=== PATIENT | female | born 1960 | race Asian ===

== ENCOUNTER → 2016-09-27 | Outpatient (CLI) | payer BC ==
--- NOTE | 2016-09-27 14:22 | RADRPT ---
PROCEDURE: XR left knee. CLINICAL INDICATION: Knee pain TECHNIQUE: AP weightbearing, lateral weightbearing and sunrise views are available for review. COMPARISON: None available FINDINGS: The osseous structures are normal in mineralization, architecture and alignment. No fractures are i dentified. No osseous lesions are identified. The joints are unremarkable. The soft tissues are u nremarkable. IMPRESSION: Unremarkable examination RPTAT: HGDB .Timoteo Vang MD, MD Date Time Electronically viewed and signed by .Timoteo Vang MD, on 09/27/2016 14:21 .B/
--- NOTE | 2016-09-29 03:38 | HKNOTE ---
DATE OF SERVICE: 09/27/2016 REFERRING PHYSICIAN: Dr. Gualberto Alvarez [id number] [facility], [address] [place], [place] [address] MAIN COMPLAINT: Pain in the left knee. HISTORY OF MAIN COMPLAINT: The patient is a 55-year-old female who complains of pain in her left kn ee which has been present for about 4 weeks. There is no specific injury to the knee. She states " the pain just crept up on me." The knee felt tight so that she could not flex it all the way. She thinks there may also have been swelling of the knee. The patient was recently done yoga classes to try and strengthen her legs. She thought that might help. PRESENT COMPLAINTS: The pain in the left knee is localized to the medial side of the knee. The lef t knee does not swell. Occasionally, the knee feels unstable. A week ago, she could not flex her k nee beyond 90 degrees, and then suddenly she was able to do so again. Pain varies between being uncomfortable, moderate pain, and sometimes "severe pain." The pain is ag gravated by walking, weightbearing, and stair climbing. She does get rest pain and night pain. She takes Advil occasionally. She gets temporary relief. She has also tried taking hyaluronic acid an d turmeric. She does have a history of problems with her lower back [osteoporosis]. She takes Fosa max weekly. On a level surface, she can walk perhaps a quarter mile without stopping. She does not use a walking aid, but she gets pain in the left knee with every step that she takes. She does "limp a little." She does not have a shoe lift. She can clip her toenails and tie her michael elaces. SPORTING ACTIVITIES: Running on the treadmill. PAST ORTHOPEDIC HISTORY PREVIOUS ORTHOPEDIC OPERATIONS: None. PRIOR CORTISONE INTAKE: The patient has had cortisone injections "into the back of my neck and into my left shoulder." ALCOHOL INTAKE: Once a week. OTHER JOINT PROBLEMS: None. BLOOD TESTS FOR ARTHRITIS: None. PRIOR INJURIES TO HIPS OR KNEES: None. 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 PAST SURGICAL HISTORY: Breast augmentation 2016. ALLERGIES: NONE. MEDICATIONS: 1. Alendronate sodium for osteoporosis. 2. Valacyclovir for episodic herpes. 3. Vitamin C. 4. Vitamin A. 5. Calcium. 6. Hyaluronic acid capsules. FAMILY HISTORY: Noncontributory. SYSTEMS REVIEW: Prone to heartburn, varicose veins, gait disturbance due to her knee, otherwise ent irely negative. HABITS: Cigarette smoking: None. Alcohol intake: Once a week. GUN STOCK CHECKER: Dr. Gualberto Alvarez, [id number] [facility], [place] [address]. PHYSICAL EXAMINATION: GENERAL: A delightful and remarkably youthful 55-year-old female. VITAL SIGNS: Height 5 feet. Weight 120 pounds. Blood pressure 120/70, temperature 98.5. GAIT: The patient's gait is mildly antalgic. She walks without a walking aid. RIGHT HIP: A full range of motion without pain. LEFT HIP: A full range of motion without pain. LEFT KNEE: The left knee shows normal alignment. The medial and lateral collateral ligaments and c ruciate ligaments are intact. Jerrod test is negative. There is no scarring, crepitus, or cysts. Th e patella tracks normally. There is no tenderness on the articular surface of the patella or in the patellar groove. The Q angle is normal. Extension lacks 5 degrees (moderately painful.) Flexion la cks 25 degrees (moderately painful.) Marked tenderness over the medial joint line, 1+ effusion. IMAGING: Plain x-rays of the right knee obtained today were reviewed. These show minimal degenerat bob changes. MRI scan of the left knee obtained on 08/25/[address] Anthony as showing "an oblique t ear of the posterior horn of the medial meniscus extending to the undersurface of the structure, ___ _ the quadriceps tendon on the superior aspect of the patella which may represent an intrasubstance tear or sprain, small joint effusion, chondromalacia of the medial and lateral articular margin of t he patella." DIAGNOSES: 1. Torn medial meniscus of the right knee. 2. Asthma. MANAGEMENT: The patient advised that she has the classic symptoms, clinical findings, and radiologi derrick findings of a torn meniscus. She was advised that the MRI scan has a 5% chance of seeing pathol ogy that is not present and another 5% chance of missing pathology that is present. She is advised that, in my professional opinion, she will need to undergo an arthroscopic operation on the knee. The surgery and some of the major possible complications were discussed with her in a fair amount of detail. FINAL DIAGNOSES: 1. Torn medial meniscus of the right knee. 2. Asthma. She was advised to keep her activities to a minimum until she has the surgery. The procedure is not an emergency, but strenuous activity could cause further tears of the meniscus. The patient will c all if and when she wishes to consider proceeding with arthroscopic surgery of her knee. Dictated By: PHILLIP CABA/PRIYANKA Conf#: [id number] DID#: [id number]
== END | disposition home or self-care (01) ==
LOC: HKI 13:54
DX: M25.562 Pain in left knee (principal); S83.241A Other tear of medial meniscus, current injury, right knee, initial encounter; J45.909 Unspecified asthma, uncomplicated
CPT/HCPCS: 73562; G0463

== ENCOUNTER → 2016-10-31 | Outpatient (CLI) | payer BC | END | disposition home or self-care (01) | LOC: HKI 08:32 | PROVIDERS: ATTEND Orthopaedic Surgery | DX: M25.562 Pain in left knee (principal); S83.232A Complex tear of medial meniscus, current injury, left knee, initial encounter; M22.42 Chondromalacia patellae, left knee | CPT/HCPCS: G0463 ==